=== PATIENT | male | born 2000 | race Caucasian/White ===

== ENCOUNTER 2020-01-23 20:01 | Emergency (ER) | payer BC, OTHER ==
--- NOTE | 2020-01-23 20:47 | EDM.PDOC ---
ED HPI GENERAL MEDICAL PROBLEM - General Chief Complaint: Respiratory Problem Stated Complaint: SOB Time Seen by Provider: 01/23/20 20:17 Source of Information: Reports: Patient, RN Notes Reviewed History Limitations: Reports: No Limitations - History of Present Illness INITIAL COMMENTS - FREE TEXT/NARRATIVE: Patient is a 19-year-old male who presents to the ED for the evaluation of some ongoing shortness of breath. Patient states that he was diagnosed with acute respiratory distress syndrome at the [facility] 2 weeks ago. He was sent home on an albuterol inhaler, and some allergy medication. He states that this was helping for a while, but he notes over the last 3 days he is having increased shortness of breath with exertion, and sometimes even at rest. He states is not really coughing more than he normally is. He is not had any fevers or chills at home, but he did have a low-grade temp at triage, 99.1 F. His O2 sat is 99% on room air. Patient states that he has been using his albuterol inhaler roughly 3 times per day. He also states that he is a smoker, he does smoke roughly 1 pack/day for the last 3 years, but states he has not been doing this much since he has been sick. He also notes he used to vape before he smoked. Patient denies any other previous lung issues like asthma, or cardiac issues. He does not have a primary care provider. He states his mother is an RN and usually just goes to her for medical advice. - Related Data Allergies Allergy/AdvReac Type Severity Reaction Status Date / Time No Known Allergies Allergy Verified 01/23/20 20:17 Home Meds: Home Meds . [Unable to Verify Home Med List] 01/23/20 [History] Past Medical History Psychiatric History: Reports: ADHD, Schizophrenia Social & Family History - Family History Family Medical History: Noncontributory - Tobacco Use Smoking Status *Q: Current Every Day Smoker Years of Tobacco use: 3 Packs/Tins Daily: 0.2 - Caffeine Use Caffeine Use: Reports: Coffee - Recreational Drug Use Recreational Drug Use: Yes Drug Use in Last 12 Months: Yes Recreational Drug Type: Reports: Marijuana/Hashish Recreational Drug Use Frequency: Daily - Living Situation & Occupation Living situation: Reports: Single, with Family Occupation: Unemployed ED ROS GENERAL - Review of Systems Review Of Systems: See Below Constitutional: Denies: Fever, Chills Respiratory: Reports: Shortness of Breath. Denies: Wheezing, Cough, Sputum Cardiovascular: Denies: Chest Pain GI/Abdominal: Denies: Abdominal Pain, Constipation, Diarrhea, Nausea, Vomiting Skin: Denies: Cyanosis Psychiatric: Reports: Anxiety ED EXAM, GENERAL - Physical Exam Exam: See Below Exam Limited By: No Limitations General Appearance: Alert, WD/WN, No Apparent Distress, Anxious (somewhat anxious, patient talks fast when answering questions) Eye Exam: Bilateral Eye: EOMI, Normal Inspection, PERRL Ears: Normal External Exam, Normal Canal, Hearing Grossly Normal, Normal TMs Nose: Normal Inspection Throat/Mouth: Normal Inspection, Normal Lips, Normal Teeth, Normal Gums, Normal Oropharynx, Normal Voice, No Airway Compromise Head: Atraumatic, Normocephalic Neck: Normal Inspection, Supple Respiratory/Chest: No Respiratory Distress, Lungs Clear, No Accessory Muscle Use , Chest Non-Tender, Decreased Breath Sounds (bilaterally) Cardiovascular: Normal Peripheral Pulses, Regular Rate, Rhythm, No Edema, No Murmur Peripheral Pulses: 3+: Radial (L), Radial (R) Extremities: Normal Inspection, Normal Capillary Refill Neurological: Alert, Oriented, CN II-XII Intact (grossly), Normal Cognition, No Motor/Sensory Deficits Psychiatric: Anxious (mildly anxious, otherwise cooperative.) Skin Exam: Warm, Dry, Intact, Normal Color, No Rash Course - Vital Signs Last Recorded V/S: Last Vital Signs Temp 99.1 F 01/23/20 20:19 Pulse 98 01/23/20 20:19 Resp 15 01/23/20 20:19 BP 167/92 H 01/23/20 20:19 Pulse Ox 99 01/23/20 20:19 - Orders/Labs/Meds Orders: Active Orders 24 hr Category Date Time Status Chest 2V [CR] Stat Exams 01/23/20 20:42 Ordered - Re-Assessments/Exams Free Text/Narrative Re-Assessment/Exam: 01/23/20 20:49 Patient presents to the ED for the ongoing increasing shortness of breath. Apparently he was diagnosed with acute respiratory distress syndrome at the [facility] roughly 2 weeks ago. Unsure as to why he was discharged with an albuterol inhaler and some allergy medications if he was in ARDS. Nonetheless I will repeat a chest x-ray at today's visit, to further evaluate his symptoms. Patient does appear overly anxious, and I am considering this might be a portion of his issues. 01/23/20 21:16 Chest x-ray demonstrates no obvious sign of any infiltrate or consolidation. Nor does it show any sign of any white out that would be considered respiratory distress. I did review this with Dr. Vallejo. Official radiology read is pending. Patient will be discharged home with general recommendations at this time, and have him follow-up with a primary care provider of choice, will suggest he see Haven Salmeron for further evaluation, for possible PFTs. Departure - Departure Time of Disposition: 21:17 Disposition: Home, Self-Care 01 Condition: Fair Clinical Impression: Dyspnea on exertion - Discharge Information *PRESCRIPTION DRUG MONITORING PROGRAM REVIEWED*: No *COPY OF PRESCRIPTION DRUG MONITORING REPORT IN PATIENT HÉCTOR: No Instructions: Steps to Quit Smoking, [id number] Forms: ED Department Discharge Additional Instructions: You were evaluated in the ER today regarding your increased difficulty breathing. Your chest x-ray demonstrated no sign of an infiltrate that would suggest a pneumonia, or other signs of respiratory distress. Recommend you take your albuterol inhaler 1 to 2 puffs every 4 times per day over the next few days, then go down to 3 times a day for few days, then 2 times a day for few days, until this is used on a more of an as-needed basis. Were given a prescription for steroids, please take as directed. Recommend you set up care with a family practice provider of choice, Haven Salmeron is a midlevel in our clinic, she is a family practice provider and should be able to help you with the services. Please call [phone] and set up an appointment with her for ER follow-up. You will need to call tomorrow during normal business hours to do so. Recommend you try to quit smoking, as this will also greatly help with your feelings of shortness of breath. Please return to the ER at any time however if your symptoms change or worsen. Sepsis Event Note - Evaluation Sepsis Screening Result: No Definite Risk - Focused Exam Vital Signs: Vital Signs Temp Pulse Resp BP Pulse Ox 01/23/20 20:19 99.1 F 98 15 167/92 H 99 Date Exam was Performed: 01/23/20 Time Exam was Performed: 21:16 - My Orders Last 24 Hours: My Active Orders 01/23/20 20:42 Chest 2V [CR] Stat - Assessment/Plan Last 24 Hours: My Active Orders 01/23/20 20:42 Chest 2V [CR] Stat
--- NOTE | 2020-01-24 07:36 | CR ---
Chest: Two views of the chest were obtained. Comparison: No previous chest x-ray is available. Heart size and mediastinum are normal. Questionable density overlying the left clavicle is seen with left upper lung. Lungs otherwise are clear. Bony structures are unremarkable. Impression: 1. Questionable density overlying the left clavicle. Apical lordotic view would be helpful to see if this represents a real finding. 2. Two-view chest x-ray is otherwise unremarkable. Diagnostic code #3 This report was dictated in MDT
== END 2020-01-23 21:39 | disposition home or self-care (01) ==
LOC: JD.ED 20:01
DX: R06.02 Shortness of breath (principal); F17.210 Nicotine dependence, cigarettes, uncomplicated
CPT/HCPCS: 71046; 71046-26; 99283; 99284-25